=== PATIENT | female | born 1935 | race Caucasian/White ===

== ENCOUNTER 2021-10-23 10:20 | Outpatient (REF) | payer MEDICARE, OTHER, SELFPAY ==
--- NOTE | ~2021-10-23 | XR_ITS ---
EXAMINATION: XR CHEST CLINICAL INFORMATION: Acute upper respiratory infection. COMPARISON: None TECHNIQUE: 2 views of the chest were obtained. FINDINGS: No significant abnormality is noted involving the heart, lungs, mediastinum, bony thorax or soft tissues. XR/XR chest 2V IMPRESSION: No acute cardiopulmonary process.
[2021-10-23 12:09] LABS: Influenza A PCR NEGATIVE (Negative); Influenza B PCR NEGATIVE (Negative); Resp Syncy Virus RNA Qual PCR NEGATIVE (Negative); SARS COV2 PCR INHOUSE NEGATIVE (Negative)
== END 2021-10-23 10:21 | disposition home or self-care (01) ==
LOC: HO.HMGCX 10:20
PROVIDERS: Visit Provider Physician Assistant
DX: J06.9 Acute upper respiratory infection, unspecified (principal); Z20.822 Contact with and (suspected) exposure to COVID-19
CPT/HCPCS: 0241U; 71046

== ENCOUNTER 2024-09-13 10:04 | Outpatient (AMB) | payer MEDICARE, OTHER, SELFPAY ==
--- NOTE | 2024-09-13 10:06 | AM.OFFWIN_ITS ---
Intake Vital Signs 09/13/24 10:09 Weight 123 lb BP 134/90 H Blood Pressure Location Lt brachial Position Sitting Pulse 88 Pulse Source Pulse Oximeter Pulse Oximetry (%) 98 Oxygen Delivery Method Room Air Intake Visit Reasons: EP Bumped leg, redness, swelling Intake Note: Patient here for bump, swelling and redness on right ott that has been present since . Patient Tobacco Use Status: Never used Tobacco Allergies latex Allergy (Mild, Verified 09/13/24 10:10) Rash Do you need a note to return to daycare/school/sports/work: No HPI HPI Comments History of Present Illness Details History of Present Illness - The patient is an 88-year-old female p resenting with swelling and bruising of the right lower leg following trauma. - The patient initially injured the leg approximately two and a half years ago, cutting it on a car door. - The recent injury occurred on , followed by another incident a few days ago. She states she bumped into items and bruised her leg, hasn't been wearing her compression stockings. - Denies being on a blood thinner, has b een taking her diuretic. -Able to walk normally. Physical Exam General: Cooperative, healthy appearing, comfortable, no acute distress and well developed Orientation: Patient oriented x3 Limitations: No limitations Head: Normal to inspection Ears: Hearing grossly normal bilaterally Nose: Normal External nose present Face and sinus: Normal facial exam Eyes: Appearance normal, both eyes and all related structures Neck: Normal visual inspection and Yes full ROM Respiratory: Normal respiratory effort and able to speak in complete sentences. Skin: No rashes or lesions noted, as below Neuro: Patient oriented x3, gait normal Extremities: RLE with edema and ecchymosis and 2 hematomas, slightly ttp, some erythema but no warmth or signs of infection noted, 1+ pitting edema at ankle. Normal to inspection otherwise. [facility] Social History Patient Tobacco Use Status: Never used Tobacco Review of Systems Const All systems reviewed & are unremarkable except as noted in HPI and below Physical Exam Vital Signs: Last Vital Signs Pulse 88 09/13/24 10:09 BP 134/90 H 09/13/24 10:09 Pulse Ox 98 09/13/24 10:09 Oxygen Delivery Method Room Air 09/13/24 10:09 Assessment & Plan Assessment & Plan (1) Hematoma and contusion: Code(s): T14.8XXA - Other injury of unspecified body region, initial encounter Plan: The primary focus is on addressing the right leg swelling and bruising due to trauma. Regular use of compression stockings is advised to manage swelling, once the bruising subsides enough to allow comfort. Application of localized heat is recommended to assist in resorption of the hematoma. No immediate signs of infection like cellulitis are present. Continual monitoring of symptoms such as increased redness or warmth is essential. Patient will be educated on reassessment indicators and when to return for further care. Patient was informed and verbally consented to the use of an ambient scribe for clinic note documentation during this visit. Coding Level of Care Code New Pt Level 3 (01852) Diagnoses Hematoma and contusion T14.8XXA
[2024-09-13 10:09] VITALS: BP 134/90; PULSE 88; O2SAT 98
--- OUTSIDE RECORDS SUMMARY | 2024-09-13 11:22 | XMS_ITS | Clinical Summary ---
Author Organization [facility] [address] Address [address] [place] [address] Phone Care Team Providers Care Oil Analyst Name Role Phone Cyril Boston MD Primary Care Provider Allergies Active Allergy Reactions Criticality Noted Date Comments Latex Swelling 02/08/2006 Medications cholecalciferol (VITAMIN D-3) 50 mcg (2,000 unit) capsule Take by mouth. 09/23/2015 Active amLODIPine (NORVASC) 5 mg tablet Take 1 tablet (5 mg total) by mouth 2 (two) times a day. 180 each 1 04/04/2024 5 Active carvediloL (COREG) 12.5 mg tablet Take 1 tablet (12.5 mg total) by mouth 2 (two) times a day with meals. 180 each 1 04/04/2024 5 Active spironolactone (ALDACTONE) 25 mg tablet Take 2 tablets (50 mg total) by mouth 1 (one) time each day. 180 each 1 04/04/2024 5 Active Active Problems Problem Noted Date Diagnosed Date Hyperglycemia 04/24/2014 CKD (chronic kidney disease) , stage III (CMS/HCC V24, CMS/HCC V28) 10/20/2010 Diverticulitis of colon without hemorrhage 06/02 Overview (03/09/2024): See BE and BALDOMERO 1988. Osteopenia 02/05/2008 Overview (03/09/2024): Spine bone density 01/21, vit D insufficiency, stable 01/23 Essential hypertension, benign 02/16/2006 Overview (03/09/2024): Last Assessment & Plan: Increase lisinopril to 20mg twice daily Immunizations Name Administration Dates Next Due DTaP (Infanrix) 6wks to less than 7yo 03/30/2022 Influenza Quadravalent, MDCK , 0.5ml, preservative free (Flucelvax) 6mo and older 06/14/2019 Influenza trivalent, 0.5mL ( Fluad) 65yo and older 04/04/2024,03/04/2023,04/01/2022,02/03 Pfizer SARS-CoV-2 COVID-19, mRNA, LNP-S, preservative free 01/18/2024,07/15/2020,06/24/2020 Pneumococcal conjugate 13 va lent (Prevnar 13, PCV13) 2mo and older 08/23/2014 Pneumococcal polysaccharide 23 valent (Pneumovax 23) 2yo and older 03/21/2007 Td Tetanus diptheria (Tdvax) 7yo and older 10/04/2018,01/02/2009 Surgical History Surgery Date Site/Laterality Comments COLONOSCOPY 03/16/1988 PROCEDURE: RI COLONOSCOPY FLX DX W/COLLJ SPEC WHEN PFRMD; COMMENT: Diverticulosis, otherwise negative/incomplete to the splenic flexure. [facility]. OTHER SURGICAL HISTORY 03/14/1990 PROCEDURE: RADIOLOGIC EXAM COLON SINGLE CONTRAST STUDY; COMMENT: Diverticulosis, no ulcers. OTHER SURGICAL HISTORY 01/05/1988 PROCEDURE: RADIOLOGIC EXAM COLON SINGLE CONTRAST STUDY; COMMENT: diverticulosis, questionable cecal ulcer. COLONOSCOPY 04/29/2010 PROCEDURE: HISTORICAL COLONOSCOPY; COMMENT: small polyp, Dr Jeffrey. BREAST SURGERY 1998ish Right PROCEDURE: RI UNLISTED PROCEDURE BREAST; COMMENT: b9 Medical History Medical History Date Comments Essential hypertension, benign 02/16/2006 D X:Essential hypertension, benign Diverticulosis of colon (wit hout mention of hemorrhage) 06/02/2009 DX:Diverticulosis of colon (without mention of hemorrhage) Family History Medical History Relation Name Comments Other cancer Brother 1 stomach Thyroid disease Daughter 1 Thyroid disease Daughter 2 Other: hemophilia Father Other: enlarged heart Mother Other: osteoporosis Sister 1 Relation Name Status Comments Brother 1 Brother 2 Daughter 1 Daughter 2 Daughter 3 Father Maternal Grandfather Maternal Grandmother Mother Paternal Grandfather Paternal Grandmother Sister 1 Sister 2 Social History Tobacco Use Types Packs/Day Years Used Date Smoking Tobacco: Never Smokeless Tobacco: Never Alcohol Use Standard Drinks/Week Comments Yes 0 (1 standard drink = 0.6 oz pur e alcohol) Comments Unknown Sex and Gender Information Value Date Recorded Sex Assigned at Not on file Legal Sex Female 3:30 AM EST Gender Identity Not on file Sexual Orientation Not on file Obstetrics History Last Filed Vital Signs Vital Sign Reading Time Taken Comments Blood Pressure 138/62 04/04/2024 10:23 AM EST Pulse 80 04/04/2024 10:23 AM EST Temperature 36.6 ??C (97.9 ??F) 04/04/2024 10:[address] Respiratory Rate - - Oxygen Saturation - - Inhaled Oxygen Concentration - - Weight 57.2 kg (126 lb) 04/04/2024 10:23 AM EST Height 167.6 cm (5' 6 ) 04/04/2024 10:23 AM EST Body Mass Index 20.34 04/04/2024 10:23 AM EST Plan of Treatment Health Maintenance Due Date Last Done Comments Zoster Vaccines (1 of 2) 1986 RSV Immunization Adult Patients (1 - 1-dose 75+ series) 09/18/2011 Falls Risk Assessment 04/18/2022 Osteoporosis Screening (Bone Density Screening) 04/18/2022 Social Influencers of Health Screening 04/18/2022 COVID-19 Vaccine ( season) 2024 01/18/2024, 04/03/2022, 09/24/2021, Additional history exists Cholesterol Screening (Lipid Panel) 05/03/2024 05/03/2019 Depression Screening 09/26/2024 09/27/2023 Medicare Annual Wellness Visit 09/26/2024 09/27/2023 Hypertension/CHF/CAD Annual BMP Blood Test 04/04/2025 04/04/2024, 09/27/2023, 09/27/2023 DTaP,Tdap,and Td Vaccines (5 - Td or Tdap) 03/30/2032 03/30/2022, 03/22/2022, 10/04/2018, Additional history exists Pneumococcal Vaccine: 50+ Years Completed 08/23/2014, 03/21/2007 Influenza Vaccine Completed 04/04/2024, , 04/01/2022, Additional history exists HIB Vaccines Aged Out No longer eligi ble based on patient's age to complete this topic HPV Vaccines Aged Out No longer eligi ble based on patient's age to complete this topic Hepatitis A Vaccines Aged Out No long er eligible based on patient's age to complete this topic Hepatitis B Vaccines Aged Out No long er eligible based on patient's age to complete this topic IPV Vaccines Aged Out No longer eligi ble based on patient's age to complete this topic MMR Vaccines Aged Out No longer eligi ble based on patient's age to complete this topic Meningococcal ACWY Vaccine Aged Out N o longer eligible based on patient's age to complete this topic Meningococcal B Vaccine Aged Out No l onger eligible based on patient's age to complete this topic RSV Immunization Patients Under 20 months Aged Out No longer eligible based on patient's age to complete this topic Varicella Vaccines Aged Out No longer eligible based on patient's age to complete this topic Procedures Procedure Name Priority Date/Time Associated Diagnosis Comments BASIC METABOLIC PANEL Routine 04/04/2024 11:29 AM EST Essential hypertension, benign Stage 3a chronic kidney disease (CMS/HCC V24, CMS/HCC V28) DEPRESSION SCREENING Routine 09/27/2023 LIPID PANEL Routine 05/03/2019 from Last 3 Months or Most Recently Relevant to Health Maintenance Results * (ABNORMAL) Basic metabolic panel (04/04/2024 11:29 AM EST) Sodium 137 133 - 145 mmol/L LAB CHEMISTRY METHOD 04/04/2024 3:35 PM EST [facility] Potassium 4.2 3.5 - 5.5 mmol/L LAB CHEMISTRY METHOD 04/04/2024 3:35 PM EST [facility] Chloride 103 96 - 110 mmol/L LAB CHEMISTRY METHOD 04/04/2024 3:35 PM EST [facility] CO2 26 21 - 32 mmol/L LAB CHEMISTRY METHOD 04/04/2024 3:35 PM [facility] Anion Gap 8 3 - 11 LAB CHEMISTRY METHOD 04/04/2024 3:35 PM [facility] Glucose 113(H) 70 - 100 mg/dL LAB CHEMISTRY METHOD 04/04/2024 3:35 PM [facility] BUN 23 5 - 25 mg/dL LAB CHEMISTRY METHOD 04/04/2024 3:35 PM [facility] Creatinine 1.05 0.50 - 1.10 mg/dL LAB CHEMISTRY METHOD 04/04/2024 3:35 PM [facility] eGFR 52(L) >=60 mL/min/1. 73m2 LAB CHEMISTRY METHOD 04/04/2024 3:35 PM [facility] Comment:Calculation based on the??Chronic Kidney Disease Epidemiology Collaboration (CKD-EPI) equation refit??without adjustment for race. BUN/Creatinine Ratio 21.9 LAB CHEMISTRY METHOD 04/04/2024 3:35 PM [facility] Calcium 10.4 8.5 - 10.5 mg/dL LAB CHEMISTRY METHOD 04/04/2024 3:35 PM [facility] Blood Venous blood specimen / Unknown Venipuncture / Unknown 04/04/2024 11:29 AM EST 04/04/2024 11:29 AM EST Kami LEDBETTER LAB BLOOD ORDERABLES Final Resul t [facility] [address] [place] [address], * Depression Screening (09/27/2023) Pathologist [facility] Depression Screening abstracted Historical Provider HEALTH MAINTENANCE Final Result * (ABNORMAL) Lipid panel (05/03/2019) LDL/HDL Ratio 2 0 - 4 Triglycerides 69 0 - 150 mg/dL Cholesterol 215(A) 0 - 200 mg/dL HDL 108 >=40 mg/dL LDL Cholesterol 94 0 - 100 mg/dL Blood Venous blood specimen / Unknown us Historical Provider LAB BLOOD ORDERABLES Yasemin giron Result from Last 3 Months or Most Recently Relevant to Health Maintenance Insurance MEDICARE Care Teams Oil Analyst Relationship Specialty Start Date End Date Cyril Boston MD [address] [place] [id number] PCP - General Internal Medicine 01/02/21
== END 2024-09-13 10:54 | disposition home or self-care (01) ==
LOC: HO.HMCWIC 10:04
PROVIDERS: Visit Provider Physician Assistant
DX: T14.8XXA Other injury of unspecified body region, initial encounter (principal)

== ENCOUNTER → 2024-09-13 10:04 | Outpatient (BNVA) | payer MEDICARE, OTHER, SELFPAY | PROVIDERS: Visit Provider Physician Assistant | DX: T14.8XXA Other injury of unspecified body region, initial encounter (principal) | CPT/HCPCS: 99202 ==